=== PATIENT | male | born 1980 | race Caucasian/White ===

== ENCOUNTER 2021-02-02 08:01 | Emergency (ER) | payer SELFPAY ==
[2021-02-02 08:12] VITALS: BP 150/103; PULSE 85; TEMP 98.1; BMI 22.3
[2021-02-02] MEDS ORDERED: ACETAMINOPHEN 500 MG TABLET (FP) PO ONE (09:37)
[2021-02-02] MEDS ORDERED: ACETAMINOPHEN 500 MG TABLET (FP) ONE (09:52)
[2021-02-02] MEDS ORDERED: KETOROLAC TROMETHAMINE 15 MG/ML VIAL IM ONE (11:34)
[2021-02-02] MEDS ORDERED: KETOROLAC TROMETHAMINE 15 MG/ML VIAL ONE (11:37)
[2021-02-02] MEDS ORDERED: METHOCARBAMOL 500 MG TABLET ONE (11:37)
[2021-02-02] MEDS: METHOCARBAMOL 500 MG TABLET PO ONE ×2 (11:43→12:09)
== END 2021-02-02 12:22 | disposition home or self-care (01) ==
LOC: JERFT 08:01
PROC: 3E0233Z Introduction of Anti-inflammatory into Muscle, Percutaneous Approach (ICD-10-PCS; principal; 2021-02-02)
DX: M54.50 Low back pain, unspecified (principal)
CPT/HCPCS: 72100-TC-FY; 99284-25

== ENCOUNTER 2021-02-06 13:13 | Emergency (ER) | payer OTHER ==
[2021-02-06 13:30] VITALS: BP 112/62; PULSE 87; TEMP 98.1; BMI 22.3
[2021-02-06] MEDS ORDERED: IBUPROFEN 600 MG TABLET (FP) PO ONE ×2 (16:01→16:04)
== END 2021-02-06 16:30 | disposition home or self-care (01) ==
LOC: JERFT 13:13
DX: M79.672 Pain in left foot (principal); W20.8XXA Other cause of strike by thrown, projected or falling object, initial encounter
CPT/HCPCS: 73630-TC-LT; 99283-25

== ENCOUNTER 2023-12-29 18:25 | Inpatient (IN) | payer OTHER ==
[2023-12-29 19:41] VITALS: BMI 20.9
[2023-12-29] MEDS ORDERED: POLYETHYLENE GLYCOL (HEALTHYLAX) 3350 17 GM PACKET PO PRN (20:40)
[2023-12-29] MEDS ORDERED: NICOTINE POLACRILEX 2 MG LOZENGE BC PRN (20:40)
[2023-12-29] MEDS ORDERED: guaiFENesin 600 MG TABLET.ER (FP) PO PRN (20:40)
[2023-12-29] MEDS ORDERED: ONDANSETRON *ODT* 4 MG TABLET SL PRN (20:40)
[2023-12-29] MEDS ORDERED: DICYCLOMINE HCL 10 MG CAPSULE PO PRN (20:40)
[2023-12-29] MEDS ORDERED: MAG HYDROX/AL HYDROX/SIMETH 30 ML UNIT-DOSE CUP PO PRN (20:40)
[2023-12-29] MEDS ORDERED: BENZOCAINE/MENTHOL (CHLORASEPTIC ) LOZENGE MM PRN (20:40)
[2023-12-29] MEDS ORDERED: P-EPHED 60MG/TRIPROLIDI 2.5MG TABLET PO PRN (20:40)
[2023-12-29] MEDS ORDERED: IBUPROFEN 400 MG TABLET (FP) PO PRN (20:40)
[2023-12-29] MEDS ORDERED: BENZONATATE 200 MG CAPSULE PO PRN (20:40)
[2023-12-29] MEDS ORDERED: MAGNESIUM HYDROX 2400MG/30ML ORAL SUSPENSION 30 ML CUP PO PRN (20:40)
[2023-12-29] MEDS ORDERED: LOPERAMIDE HCL 2 MG CAPSULE PO PRN (20:40)
[2023-12-29] MEDS ORDERED: BISMUTH SUBSALICYLATE 524 MG/30 ML PO PRN (20:40)
[2023-12-29] MEDS ORDERED: ACETAMINOPHEN 325 MG TABLET (FP) PO PRN (20:40)
[2023-12-29] MEDS: MELATONIN 5 MG TABLETS PO SCH (23:09)
[2023-12-29] MEDS: THIAMINE 100 MG TABLET PO SCH (23:09)
[2023-12-30] MEDS: METHOCARBAMOL 500 MG TABLET PO PRN (02:09)
[2023-12-30] MEDS: hydrOXYzine PAMOATE 25 MG CAPSULE (FP) PO PRN ×2 (02:09→17:16)
[2023-12-30] MEDS: NICOTINE POLACRILEX 2 MG GUM BUC PRN (06:19)
[2023-12-30 09:25] LABS: POTASSIUM 3.5 mmol/L (3.5-5.1)
[2023-12-30 09:34] LABS: ALBUMIN 4.1 g/dl (3.4-5.0); BLOOD UREA NITROGEN 10.4 mg/dL (7-18); CALCIUM 9.2 mg/dL (8.5-10.1)
[2023-12-30 09:39] LABS: BILIRUBIN,TOTAL 0.4 mg/dL (0.2-1)
[2023-12-30] MEDS: PRENATAL VITAMINS W/ FOLIC ACID TABLET (FP) PO SCH (09:44)
[2023-12-30 09:46] LABS: MCH 32.5 pg (25.7-33.7); MCHC 33.2 g/dl (32.0-35.9); MEAN CELL VOLUME 97.7 fl (80-96); MEAN PLT VOLUME 8.1 fl (7.5-11.1); PLATELET COUNT 228 10^3/uL (134-434); RBC 4.61 M/mm3 (4.00-5.60); RDW 14.2 % (11.9-15.9); WHITE BLOOD COUNT 7.3 K/mm3 (4.0-10.0)
[2023-12-30] MEDS: IBUPROFEN 600 MG TABLET (FP) PO PRN (11:18)
[2023-12-30] MEDS ORDERED: hydrOXYzine PAMOATE 25 MG CAPSULE (FP) PO PRN (14:45)
[2023-12-30] MEDS: MIRTAZAPINE 15 MG TABLET (FP) PO SCH (22:24)
[2023-12-30] MEDS: GABAPENTIN 400 MG CAPSULE PO SCH (22:24)
[2023-12-31] MEDS: FLUoxetine HCL 20 MG CAPSULE PO SCH (09:52)
[2024-01-01 09:28] VITALS: RESP 16
[2024-01-01 13:18] VITALS: BP 101/62; PULSE 67; TEMP 98
== END 2024-01-01 14:07 | disposition home or self-care (01) | DRG 897 ==
LOC: YASAS 18:25 → Y6N 20:41
PROVIDERS: ADMIT Allergy & Immunology; ATTEND Surgery
PROC: HZ2ZZZZ Detoxification Services for Substance Abuse Treatment (ICD-10-PCS; principal; 2023-12-29)
DX: F10.20 Alcohol dependence, uncomplicated (principal); F10.220 Alcohol dependence with intoxication, uncomplicated; F12.20 Cannabis dependence, uncomplicated; F17.210 Nicotine dependence, cigarettes, uncomplicated; F19.24 Other psychoactive substance dependence with psychoactive substance-induced mood disorder; F39 Unspecified mood [affective] disorder; F43.10 Post-traumatic stress disorder, unspecified
CPT/HCPCS: 0241U-QW; 36415; 80053; 80305; 80307; 85027; 86780; 93005; 93010

== ENCOUNTER 2024-02-16 12:35 | Inpatient (IN) | payer OTHER ==
[2024-02-16] MEDS ORDERED: BENZONATATE 200 MG CAPSULE PO PRN (14:01)
[2024-02-16] MEDS ORDERED: NALOXONE (NARCAN) HCL 4 MG/0.1 ML SPRAY NS PRN (14:01)
[2024-02-16] MEDS ORDERED: BENZOCAINE/MENTHOL (CHLORASEPTIC ) LOZENGE MM PRN (14:01)
[2024-02-16] MEDS ORDERED: ONDANSETRON *ODT* 4 MG TABLET SL PRN (14:01)
[2024-02-16] MEDS ORDERED: MAG HYDROX/AL HYDROX/SIMETH 30 ML UNIT-DOSE CUP PO PRN (14:01)
[2024-02-16] MEDS ORDERED: MAGNESIUM HYDROX 2400MG/30ML ORAL SUSPENSION 30 ML CUP PO PRN (14:01)
[2024-02-16] MEDS ORDERED: guaiFENesin 600 MG TABLET.ER (FP) PO PRN (14:01)
[2024-02-16] MEDS ORDERED: POLYETHYLENE GLYCOL (HEALTHYLAX) 3350 17 GM PACKET PO PRN (14:01)
[2024-02-16] MEDS ORDERED: LOPERAMIDE HCL 2 MG CAPSULE PO PRN (14:01)
[2024-02-16] MEDS ORDERED: BISMUTH SUBSALICYLATE 262 MG/15 ML BTL PO PRN (14:01)
[2024-02-16] MEDS ORDERED: DICYCLOMINE HCL 10 MG CAPSULE PO PRN (14:01)
[2024-02-16] MEDS ORDERED: ACETAMINOPHEN 325 MG TABLET (FP) PO PRN (14:01)
[2024-02-16 14:03] VITALS: BMI 23.0
[2024-02-16] MEDS ORDERED: PRENATAL VITAMINS W/ FOLIC ACID TABLET (FP) PO ONE (15:06)
[2024-02-16] MEDS ORDERED: NICOTINE 14 MG/24 HOURS TOPICAL PATCH TD ONE (15:06)
[2024-02-16] MEDS: PRENATAL VITAMINS W/ FOLIC ACID TABLET (FP) PO SCH (15:11)
[2024-02-16] MEDS: NICOTINE 14 MG/24 HOURS TOPICAL PATCH TD SCH (15:11)
[2024-02-16] MEDS: chlordiazePOXIDE HCL 25 MG CAPSULE PO SCH (17:44)
[2024-02-16] MEDS: hydrOXYzine PAMOATE 25 MG CAPSULE (FP) PO PRN (17:44)
[2024-02-16] MEDS ORDERED: GABAPENTIN 100 MG CAPSULE PO SCH (22:00)
[2024-02-16] MEDS: MELATONIN 5 MG TABLETS PO SCH (22:56)
[2024-02-16] MEDS: GABAPENTIN 100 MG CAPSULE PO SCH (22:57)
[2024-02-16] MEDS: THIAMINE 100 MG TABLET PO SCH (22:57)
[2024-02-16] MEDS: MIRTAZAPINE 15 MG TABLET (FP) PO SCH (22:57)
[2024-02-17] MEDS: chlordiazePOXIDE HCL 25 MG CAPSULE PO PRN (07:29)
[2024-02-17 09:52] LABS: HEMATOCRIT 44.5 % (35.4-49); HEMOGLOBIN 14.9 GM/dL (11.7-16.9); MCH 32.3 pg (25.7-33.7); MCHC 33.4 g/dl (32.0-35.9); MEAN CELL VOLUME 96.6 fl (80-96); MEAN PLT VOLUME 8.1 fl (7.5-11.1); PLATELET COUNT 295 10^3/uL (134-434); RBC 4.61 M/mm3 (4.00-5.60); RDW 13.5 % (11.9-15.9); WHITE BLOOD COUNT 8.1 K/mm3 (4.0-10.0)
[2024-02-17 10:04] LABS: CHLORIDE 108 mmol/L (98-107); POTASSIUM 3.7 mmol/L (3.5-5.1); SODIUM 141 mmol/L (136-145)
[2024-02-17 10:13] LABS: ALBUMIN 3.8 g/dl (3.4-5.0); SGOT/AST 37 U/L (15-37); SGPT/ALT 39 U/L (13-61)
[2024-02-17 10:14] LABS: ANION GAP 6 mmol/L (4-13); BLOOD UREA NITROGEN 15.4 mg/dL (7-18); CO2 27 mmol/L (21-32); GLUCOSE,RANDOM 89 mg/dL (74-106)
[2024-02-17 10:15] LABS: BILIRUBIN,TOTAL 0.4 mg/dL (0.2-1); TOT PROT 6.3 g/dl (6.4-8.2)
[2024-02-17 10:16] LABS: ALK PHOS 80 U/L (45-117)
[2024-02-17 10:17] LABS: CREATININE 0.9 mg/dL (0.55-1.3)
[2024-02-17] MEDS: FLUoxetine HCL 10 MG CAPSULE PO SCH (10:23)
[2024-02-17] MEDS: NICOTINE POLACRILEX 2 MG GUM BUC PRN (13:43)
[2024-02-17] MEDS: IBUPROFEN 600 MG TABLET (FP) PO PRN (20:04)
[2024-02-17] MEDS: METHOCARBAMOL 500 MG TABLET PO PRN (22:28)
[2024-02-18] MEDS: chlordiazePOXIDE HCL 25 MG CAPSULE PO SCH (05:55)
[2024-02-18] MEDS: IBUPROFEN 400 MG TABLET (FP) PO PRN (07:17)
[2024-02-19] MEDS ORDERED: chlordiazePOXIDE HCL 10 MG CAPSULE PO PRN
[2024-02-19] MEDS: chlordiazePOXIDE HCL 10 MG CAPSULE PO SCH (06:00)
[2024-02-19] MEDS ORDERED: NALOXONE (NYS OPIOID OVERDOSE PROGRAM) 4 MG/0.1 ML SPRAY NS SCH (13:30)
[2024-02-19 14:00] VITALS: BP 117/73; PULSE 85; RESP 18; TEMP 97.6
[2024-02-19] MEDS ORDERED: MIRTAZAPINE 15 MG TABLET (FP) PO SCH (22:00)
[2024-02-19] MEDS ORDERED: GABAPENTIN 400 MG CAPSULE PO SCH (22:00)
[2024-02-20] MEDS ORDERED: chlordiazePOXIDE HCL 10 MG CAPSULE PO SCH (05:00)
[2024-02-21] MEDS ORDERED: chlordiazePOXIDE HCL 10 MG CAPSULE PO ONE (05:00)
== END 2024-02-19 14:15 | disposition home or self-care (01) | DRG 897 ==
LOC: YASAS 12:35 → Y3N 14:46 → Y6N 02-17 14:30
PROVIDERS: ADMIT Allergy & Immunology; ATTEND Surgery
PROC: HZ2ZZZZ Detoxification Services for Substance Abuse Treatment (ICD-10-PCS; principal; 2024-02-16)
DX: F10.230 Alcohol dependence with withdrawal, uncomplicated (principal); F12.20 Cannabis dependence, uncomplicated; F17.213 Nicotine dependence, cigarettes, with withdrawal; F41.9 Anxiety disorder, unspecified; F19.94 Other psychoactive substance use, unspecified with psychoactive substance-induced mood disorder; F43.10 Post-traumatic stress disorder, unspecified; F39 Unspecified mood [affective] disorder; G47.00 Insomnia, unspecified; R26.2 Difficulty in walking, not elsewhere classified; Z99.89 Dependence on other enabling machines and devices; Z56.0 Unemployment, unspecified
CPT/HCPCS: 36415; 80053; 80307; 85027; 86780; 93005; 93010

== ENCOUNTER 2024-03-10 14:32 | Inpatient (IN) | payer OTHER ==
[2024-03-10 15:32] VITALS: BMI 23.0
[2024-03-10] MEDS ORDERED: POLYETHYLENE GLYCOL (HEALTHYLAX) 3350 17 GM PACKET PO PRN (15:42)
[2024-03-10] MEDS ORDERED: BENZOCAINE/MENTHOL (CHLORASEPTIC ) LOZENGE MM PRN (15:42)
[2024-03-10] MEDS ORDERED: MAG HYDROX/AL HYDROX/SIMETH 30 ML UNIT-DOSE CUP PO PRN (15:42)
[2024-03-10] MEDS ORDERED: NALOXONE (NARCAN) HCL 4 MG/0.1 ML SPRAY NS PRN (15:42)
[2024-03-10] MEDS ORDERED: ONDANSETRON *ODT* 4 MG TABLET SL PRN (15:42)
[2024-03-10] MEDS ORDERED: guaiFENesin 600 MG TABLET.ER (FP) PO PRN (15:42)
[2024-03-10] MEDS ORDERED: DICYCLOMINE HCL 10 MG CAPSULE PO PRN (15:42)
[2024-03-10] MEDS ORDERED: ACETAMINOPHEN 325 MG TABLET (FP) PO PRN (15:42)
[2024-03-10] MEDS ORDERED: BENZONATATE 200 MG CAPSULE PO PRN (15:42)
[2024-03-10] MEDS ORDERED: BISMUTH SUBSALICYLATE 524 MG/30 ML PO PRN (15:42)
[2024-03-10] MEDS ORDERED: NICOTINE POLACRILEX 2 MG LOZENGE BC PRN (15:42)
[2024-03-10] MEDS ORDERED: LOPERAMIDE HCL 2 MG CAPSULE PO PRN (15:42)
[2024-03-10] MEDS ORDERED: diazePAM 5 MG TABLET ONE (17:24)
[2024-03-10] MEDS: diazePAM 5 MG TABLET PO SCH (17:25)
[2024-03-10] MEDS: METHOCARBAMOL 500 MG TABLET PO PRN (20:28)
[2024-03-10] MEDS: IBUPROFEN 600 MG TABLET (FP) PO PRN (20:28)
[2024-03-10] MEDS: MAGNESIUM HYDROX 2400MG/30ML ORAL SUSPENSION 30 ML CUP PO PRN (20:55)
[2024-03-10] MEDS: THIAMINE 100 MG TABLET PO SCH (22:11)
[2024-03-10] MEDS: MELATONIN 5 MG TABLETS PO SCH (22:11)
[2024-03-10] MEDS: hydrOXYzine PAMOATE 25 MG CAPSULE (FP) PO PRN (22:33)
[2024-03-11] MEDS: diazePAM 5 MG TABLET PO SCH (05:49)
[2024-03-11] MEDS: IBUPROFEN 400 MG TABLET (FP) PO PRN (08:48)
[2024-03-11] MEDS: NICOTINE POLACRILEX 2 MG GUM BUC PRN (08:51)
[2024-03-11 09:25] LABS: CHLORIDE 105 mmol/L (98-107); POTASSIUM 4.1 mmol/L (3.5-5.1); SODIUM 138 mmol/L (136-145)
[2024-03-11 09:28] LABS: HEMATOCRIT 46.5 % (35.4-49); HEMOGLOBIN 15.6 GM/dL (11.7-16.9); MCH 32.1 pg (25.7-33.7); MCHC 33.6 g/dl (32.0-35.9); MEAN CELL VOLUME 95.4 fl (80-96); PLATELET COUNT 286 10^3/uL (134-434); RBC 4.87 M/mm3 (4.00-5.60); RDW 13.6 % (11.9-15.9); WHITE BLOOD COUNT 7.3 K/mm3 (4.0-10.0)
[2024-03-11 09:38] LABS: ANION GAP 8 mmol/L (4-13); BLOOD UREA NITROGEN 14.8 mg/dL (7-18); CALCIUM 9.1 mg/dL (8.5-10.1); CO2 25 mmol/L (21-32); GLUCOSE,RANDOM 105 mg/dL (74-106)
[2024-03-11 09:40] LABS: ALBUMIN 3.9 g/dl (3.4-5.0)
[2024-03-11 09:41] LABS: CREATININE 1.1 mg/dL (0.55-1.3); SGOT/AST 70 U/L (15-37); SGPT/ALT 97 U/L (13-61)
[2024-03-11 09:42] LABS: ALK PHOS 87 U/L (45-117); BILIRUBIN,TOTAL 0.3 mg/dL (0.2-1)
[2024-03-11] MEDS: PRENATAL VITAMINS W/ FOLIC ACID TABLET (FP) PO SCH (10:12)
[2024-03-11] MEDS: FLUoxetine HCL 20 MG CAPSULE PO SCH (10:12)
[2024-03-11] MEDS: GABAPENTIN 400 MG CAPSULE PO SCH (10:12)
[2024-03-11] MEDS: diazePAM 5 MG TABLET PO PRN (20:22)
[2024-03-11] MEDS: MIRTAZAPINE 15 MG TABLET (FP) PO SCH (22:37)
[2024-03-12] MEDS: diazePAM 5 MG TABLET PO SCH (05:32)
[2024-03-13] MEDS: diazePAM 5 MG TABLET PO ONE (05:36)
[2024-03-13] MEDS: NALOXONE (NYS OPIOID OVERDOSE PROGRAM) 4 MG/0.1 ML SPRAY NS SCH (10:04)
[2024-03-13 11:08] VITALS: BP 122/80; PULSE 81; RESP 17; TEMP 98.7
== END 2024-03-13 10:25 | disposition home or self-care (01) | DRG 897 ==
LOC: YASAS 14:32 → Y6N 17:18
PROVIDERS: ADMIT Allergy & Immunology; ATTEND Family Medicine Addiction Medicine
PROC: HZ2ZZZZ Detoxification Services for Substance Abuse Treatment (ICD-10-PCS; principal; 2024-03-10)
DX: F10.230 Alcohol dependence with withdrawal, uncomplicated (principal); F17.210 Nicotine dependence, cigarettes, uncomplicated; F10.280 Alcohol dependence with alcohol-induced anxiety disorder; F10.282 Alcohol dependence with alcohol-induced sleep disorder; F43.10 Post-traumatic stress disorder, unspecified; F19.24 Other psychoactive substance dependence with psychoactive substance-induced mood disorder; F41.8 Other specified anxiety disorders; M54.2 Cervicalgia; M54.50 Low back pain, unspecified; G89.29 Other chronic pain; Z99.89 Dependence on other enabling machines and devices
CPT/HCPCS: 36415; 80053; 80305; 80307; 85027